=== PATIENT | female | born 1955 | race Caucasian/White ===

== ENCOUNTER 2018-07-02 07:27 | Outpatient (CLI) | payer OTHER, SELFPAY ==
[2018-07-02] VITALS (11 sets, daily range): BP systolic 90–133; BP diastolic 58–79; PULSE 58–82; RESP 16–59; TEMP 36.2; O2SAT 95–100
--- NOTE | 2018-07-02 07:36 | DI.RAD.S_ITS ---
PROCEDURE: PAIN C/T INTERLAMINAR INJECT INDICATIONS: Cervical stenosis with upper extremity radicular features FINDINGS: Fluoroscopic spot filming was performed to verify placement of spinal needles at the low cervical level, as labeled on the films. Appropriate location(s) of the needle tip(s) was confirmed by injection of iodinated contrast. IMPRESSION: Successful low cervical thoracic junction midline posterior interlaminar needle tip localization for epidural steroid injection. Dictated by: Jorge Card M.D. on 07/02/2018 at 14:01 Approved by: Jorge Card M.D. on 07/02/2018 at 14:21
--- NOTE | 2018-07-02 07:36 | DI.RAD.S_ITS ---
PROCEDURE: XR CERVICAL SPINE 4V OR 5V INDICATIONS: Cervical stenosis status post decompression TECHNIQUE: 5 views of the cervical spine acquired. COMPARISON: [facility], MR, MR CERVICAL SPINE WITHOUT CONTRAST, 06/19/2018, 9:58. [facility], MR CERVICAL SPINE WO CON, 10/10/2016, 10:24. [facility] [place], CR, SPINE CERVICAL MIN 4VW, 02/08/2016, 11:09. FINDINGS: Bones: No fractures or dislocations to the T1 level. Oblique images demonstrate no new bony foraminal stenoses with reference to the prior outside plain films from 02/08/16. Cerclage wire fusion procedure crossing the posterior elements of C5-6 is again noted, pre-of disruption.. Soft tissues: No prevertebral soft tissue swelling. IMPRESSION: No interval worsening of the degenerative disc disease and facet osteoarthritis along the cervical spine most prominent from C5 inferiorly. Prior C5-6 posterior element cerclage wire fusion has been performed. The degenerative disc height reduction and osteophyte formation is most prominent at C6-7 and C7-T1. Dictated by: Jorge Card M.D. on 07/02/2018 at 8:01 Approved by: Jorge Card M.D. on 07/02/2018 at 8:03
--- NOTE | 2018-07-02 08:27 | PM.PROC.1 ---
Procedures Date/Time Date of procedure: 07/02/18 Time of procedure: 08:28 General Procedure description: PREOP DIAGNOSIS 1. CERVICAL STENOSIS, 2. CERVICAL HNP WITH UPPER EXTREMITY RADICULAR FEATURES, POST OP DIAGNOSIS 1. CERVICAL STENOSIS, 2. CERVICAL HNP WITH UPPER EXTREMITY RADICULAR FEATURES, PROCEDURES 1. FLUORSCOPICALLY GUIDED CONTRAST CONTROLLED INTERLAMINAR EPIDURAL STEROID INJECTION - C7/T1 TL LARS, PHYSICIAN: Daniel Scales DO INDICATIONS: Sparkle is referred by for treatment of Cervical Stenosis. FINDINGS Cervical Stenosis due to disc deterioration and nerve root irritation and nerve root irritation DESCRIPTION OF PROCEDURE Fluoroscopically guided, contrast-controlled C7/T1 translaminar epidural steroid injection with conscious sedation. Following denial of allergy and review of potential side effects and complications, including, but not necessarily limited to, infection, allergic reaction, local tissue breakdown, temporary as well as permanent nerve injury, stroke, paralysis, and possible , the patient indicated that patient understood and agreed to proceed. An informed consent document was signed by the patient, witnessed by a nurse, and placed in the patient's chart. Additionally, other treatment options including modalities, medications, and physical therapy were reviewed with the patient. After review of previous anaesthesic history and IV conscious sedation the patient was deemed safe to proceed with todays procedure with IV conscious sedation as ASA class II designation. Safety time-out was performed to confirm patient ID, procedure to be performed and site of procedure. IV sedation was accomplished with a combination of 4mg of Versed and 50mcg of Fentanyl administered by the RN after DO order, titrated to patient comfort during the course of the procedure while the patient remained responsive to all verbal commands. In the prone position, following sterile prep and drape of the cervical region, the C7/T1 translaminar space was identified fluoroscopically. The skin was anesthetized via a 25-gauge 1.5-inch needle with 1% lidocaine solution. At this point, a 25-gauge, 2.5-inch short bevel spinal needle was atraumatically introduced and advanced under fluoroscopic guidance into epidural space at the C7/T1 translaminar space. Depth was confirmed on lateral view. Radiological data, including multiple fluoroscopic views of the cervical spine, reveal a spinal needle at the C7/T1 translaminar space. Lateral views then show placement of the needle in the epidural space. Subsequent views show contrast material flowing superiorly and inferiorly in the epidural space. DSA fluoroscopy with live contrast injection, once again, confirmed no vascular or intrathecal uptake. At this point, using loss of resistance technique with saline and air, the epidural space was entered. Following negative aspiration, injection of approximately 1.5 cc of Isovue-[id number] with live fluoroscopy in the AP view confirmed epidural flow in the epidural space without vascular or intrathecal uptake observed. Subsequently, a test dose of 1 cc of 1% lidocaine solution was injected and patient was observed for two minutes without signs or symptoms of complications, including abdominal pain, shortness of breath, bilateral upper or lower extremity weakness, nausea and vomiting, prior to steroid injection. At this point, 3 cc or 30 mg of dexamethasone was then injected without incident. The patient tolerated the procedure well without signs or symptoms of complications prior to transfer to the recovery area for further monitoring The patient was then transferred to the recovery area where they were observed for an appropriate period of time after the injection. The patient reported a VAS score of 6 prior to the procedure and a post-procedure VAS of 0. Total Fluoroscopy Time: 23.2 seconds Total Conscious Sedation Time: 24min POST OP INSTRUCTIONS The patient was provided a Pain Log to continue to record their response to the target-specific procedure prior to follow-up visit with the referring provider. Additionally, specific post-injection care instructions and a contact number to our office were provided if concerns arise regarding possible complications associated with the procedure are suspected. Daniel Scales, Complications: none
[2018-07-02] MEDS: MIDAZOLAM 5 MG/5 ML VIAL IV (08:35)
[2018-07-02] MEDS: fentaNYL 100 MCG/2 ML INJ IV (08:41)
[2018-07-02] MEDS: IOPAMIDOL 15 ML VIAL 3 ML INJ (08:45)
[2018-07-02] MEDS: LIDOCAINE 1% 20 ML INJ 5 ML INJ (08:45)
[2018-07-02] MEDS: DEXAMETHASONE 10 MG/ML VIAL 30 MG INJ (09:02)
== END 2018-07-02 09:21 ==
PROVIDERS: PCP Family Medicine; Visit Provider Physical Medicine & Rehabilitation
DX: M48.02 Spinal stenosis, cervical region (principal); M50.123 Cervical disc disorder at C6-C7 level with radiculopathy
CPT/HCPCS: 62321; 72050; 99152; 99153; J1100; J2250; J3010